=== PATIENT | female | born 1955 | race Caucasian/White ===

== ENCOUNTER 2020-02-05 09:55 | Outpatient (CLI) | payer MEDICARE, SELFPAY ==
--- NOTE | 2020-02-05 11:00 | NEURO_ITS ---
Patient Number: [id number] Impression: # Complains of numbness of anterolateral right thigh. # Right peroneal neuropathy distally with neurogenic changed in EDB. # Asymmetrical right peroneal F-wave. # Needle/EMG exam normal including Quad. # Clinical correlation recommended; Problem could be related to involvement of anterolateral cutaneous of thigh. Nerve Conduction Studies Anti Sensory Summary Table Stim Site NR Peak (ms) P-T Amp (?V) Site1 Site2 Delta-P (ms) Dist (cm) Dickson (m/s) Right Sup Fibular Anti Sensory (Ant Lat Mall) 14 cm 3.9 5.5 14 cm Ant Lat Mall 3.9 16.0 41 Right Sural Anti Sensory (Lat Mall) Calf 3.5 4.0 Calf Lat Mall 3.5 16.0 46 Motor Summary Table Stim Site NR Onset (ms) O-P Amp (mV) Site1 Site2 Delta-0 (ms) Dist (cm) Dickson (m/s) Right Peroneal Motor (Vastus Med) Ankle 6.6 1.0 Popit Ankle 8.2 35.0 43 Popit 14.8 1.3 Right Tibial Motor (Abd Rivas Brev) Ankle 4.9 1.7 Knee Ankle 9.4 38.0 40 Knee 14.3 2.0 F Wave Studies NR F-Lat (ms) L-R F-Lat (ms) Right Peroneal (Mrkrs) (EDB) 55.66 Right Tibial (Mrkrs) (Abd Hallucis) 54.27 EMG Side Muscle Nerve Root Ins Act Fibs Amp Dur Recrt Comment Right AntTibialis Dp Br Fibular L4-5 Nml Nml Nml Nml Nml Right Gastroc Tibial S1-2 Nml Nml Nml Nml Nml Right Fibularis Long Sup Br Fibular L5-S1 Nml Nml Nml Nml Nml Right Flex Dig Long Tibial L5-S2 Nml Nml Nml Nml Nml Right Ext Dig Brev Dp Br Fibular L5, S1 Nml Nml Nml Nml Nml Right QuadratusFem QuadFemoris L4-5, S1 Nml Nml Nml Nml Nml MTDD
== END 2020-02-05 09:56 | disposition home or self-care (01) ==
PROVIDERS: PCP Nurse Practitioner Adult Health; Visit Provider Nurse Practitioner Adult Health
DX: G62.9 Polyneuropathy, unspecified (principal)
CPT/HCPCS: 95886; 95908

== ENCOUNTER 2021-10-15 14:53 | Emergency (ER) | payer MEDICARE, SELFPAY ==
[2021-10-15 14:58] VITALS: BP 134/47; PULSE 77; RESP 12; TEMP 36.4; O2SAT 98
--- NOTE | 2021-10-15 15:25 | ED.SKABFB ---
HPI - Skin/Abscess/Foreign Bdy General Chief complaint: Skin/Abscess/Foreign Body Stated complaint: Boil in groin area. Time Seen by Provider: 10/15/21 15:25 Source: patient, RN notes reviewed and old records reviewed Mode of arrival: ambulatory Limitations: no limitations History of Present Illness HPI narrative: 66 year old female presents to [facility] care with complaints of 3cmX 2cm red inflamed tissue to right groin area distal to labia for a 2 week duration. Patient reports that tissue is extremely sore and painful has center black scabbed area. Patient reports that she has put PRID salve and has soaked in warm Epsom salt water with no drainage noted from abscess area. Patient denies any fevers, chills, or sweats, has taken some Tylenol for her discomfort. MD complaint: abscess/boil Onset (ago): week(s) (2) Location: genitals (right perineal area) Severity: severe Severity scale (1-10): 9 Quality: aching and other (throbbing) Pain Consistency: constant Exacerbating factors: other (sitting and palpation of area) Treatments prior to arrival: other (epsom salt soak and PRID salve) Related Data Home Medications Medication Instructions Recorded Confirmed amlodipine 10 mg tablet 10 mg PO DAILY tablet 06/11/21 10/15/21 aspirin 81 mg tablet,delayed 81 mg PO DAILY 06/11/21 10/15/21 release atorvastatin 10 mg tablet 10 mg PO DAILY tablet 06/11/21 10/15/21 fluoxetine 40 mg capsule 40 mg PO DAILY cap 06/11/21 10/15/21 gabapentin 300 mg capsule 300 mg PO BID cap 06/11/21 10/15/21 levothyroxine 50 mcg tablet 100 mcg PO DAILY tablet 06/11/21 10/15/21 lisinopril 10 1 tablet PO DAILY 06/11/21 10/15/21 mg-hydrochlorothiazide 12.5 mg tablet metformin 500 mg tablet 1,000 mg PO DAILY tablet 06/11/21 10/15/21 semaglutide 0.25 mg SUBCUT WEEKLY 06/11/21 10/15/21 Allergies Allergy/AdvReac Type Severity Reaction Status Date / Time canagliflozin Allergy Unknown Rash Verified 10/15/21 14:58 erythromycin base Allergy Unknown Nausea and Verified 10/15/21 14:58 Vomiting prednisone Allergy Unknown Rash Verified 10/15/21 14:58 Review of Systems Review of Systems: CONSTITUTIONAL: Denies fever, chills, or sweats. EYES: Denies visual changes, redness, or discharge. ENT: Denies rhinorrhea, congestion, sore throat, or otalgia. CARDIOVASCULAR: Denies chest pain, palpitations, or edema. RESPIRATORY: Denies cough or dyspnea. GASTROINTESTINAL: Denies abdominal pain, nausea, vomiting, or diarrhea. GENITOURINARY: Denies dysuria or hematuria. SKIN:positive for painful red abscess to right perineal area below labia MUSCULOSKELETAL: Denies back pain, joint pain, or myalgia. NEUROLOGIC: Denies headache, numbness, or weakness. PSYCHIATRIC: Positive history of anxiety or depression. 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 There is no relevant family history pertinent to the presenting complaint Exam Narrative: GENERAL: Well-appearing, well-nourished, and in acute distress due
== END 2021-10-15 15:55 | disposition home or self-care (01) ==
PROVIDERS: Emergency Provider Registered Nurse; PCP Nurse Practitioner Adult Health
DX: L02.215 Cutaneous abscess of perineum (principal); E11.9 Type 2 diabetes mellitus without complications; Z86.73 Personal history of transient ischemic attack (TIA), and cerebral infarction without residual deficits; F41.9 Anxiety disorder, unspecified; E89.0 Postprocedural hypothyroidism
CPT/HCPCS: 10060; 99213; G0463

== ENCOUNTER 2022-01-09 10:51 | Emergency (ER) | payer MEDICARE, SELFPAY ==
--- NOTE | ~2022-01-09 | XR_ITS ---
EXAMINATION: XR chest 2V DATE: 01/09/2022 11:29 INDICATION: Cough and congestion TECHNIQUE: PA and lateral views of the chest are obtained. COMPARISON: 06/30/2018 FINDINGS: The lungs are free of acute opacities. There is no pleural effusion or pneumothorax. The ca rdiomediastinal silhouette is normal. There is mild thoracic spondylosis. IMPRESSION: 1. No acute cardiopulmonary abnormality. Reviewed, dictated and finalized at location A.
[2022-01-09 10:56] VITALS: BP 106/48; PULSE 73; RESP 16; TEMP 36.1; O2SAT 99
--- NOTE | 2022-01-09 11:22 | ED.GENADULT ---
HPI - General Adult General Chief complaint: Upper Respiratory Infection Stated complaint: COUGH/CONGESTION Source: patient Mode of arrival: ambulatory Limitations: no limitations History of Present Illness HPI narrative: Patient presents for evaluation of respiratory symptoms for the last 9 days. Symptoms include sinus congestion, productive cough of clear/green sputum, clear nasal discharge, fever, scratchy throat and right ear pain. She states her grandchild had similar symptoms. No chills, nausea, vomiting, diarrhea, body aches. She had COVID in August of this year. She had received her COVID vaccination and boosters. She has also received a flu shot and pneumonia vaccine. She does not smoke. She tried taking sudafed, mucinex and theraflu with minimal improvement in her symptoms thereafter. Related Data Home Medications Medication Instructions Recorded Confirmed amlodipine 10 mg tablet 10 mg PO DAILY 06/11/21 01/09/22 aspirin 81 mg tablet,delayed 81 mg PO DAILY 06/11/21 01/09/22 release (Adult Aspirin Regimen) atorvastatin 10 mg tablet 10 mg PO DAILY 06/11/21 01/09/22 fluoxetine 40 mg capsule 40 mg PO DAILY 06/11/21 01/09/22 gabapentin 300 mg capsule 300 mg PO BID 06/11/21 01/09/22 levothyroxine 50 mcg tablet 100 mcg PO DAILY 06/11/21 01/09/22 lisinopril 10 1 tablet PO DAILY 06/11/21 01/09/22 mg-hydrochlorothiazide 12.5 mg tablet metformin 500 mg tablet 1,000 mg PO DAILY 06/11/21 01/09/22 semaglutide 0.25 mg or 0.5 mg (2 0.25 mg subcut WEEKLY 06/11/21 01/09/22 mg/1.5 mL) subcutaneous pen injector (Ozempic) Allergies Allergy/AdvReac Type Severity Reaction Status Date / Time canagliflozin Allergy Unknown Rash Verified 01/09/22 10:55 erythromycin base Allergy Unknown Nausea and Verified 01/09/22 10:55 Vomiting prednisone Allergy Unknown Rash Verified 01/09/22 10:55 Review of Systems Review of Systems: CONSTITUTIONAL: Reports fever and fatigue. Denies chills, or sweats. EYES: Denies visual changes, redness, or discharge. ENT:Reports right ear pain, sinus congestion/drainage, and scratchy throat. CARDIOVASCULAR: Denies chest pain, palpitations, or edema. RESPIRATORY:Reports productive cough of green sputum. Denies dyspnea. GASTROINTESTINAL: Denies abdominal pain, nausea, vomiting, or diarrhea. GENITOURINARY: Denies dysuria or hematuria. SKIN: Denies rash or itching. MUSCULOSKELETAL: Denies back pain, joint pain, or myalgia. NEUROLOGIC: Denies headache, numbness, dizziness, or weakness. PSYCHIATRIC: Denies anxiety or depression. 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 Influenza and COVID were negative. Chest x-ray was negative. Blood pressure was initially soft but she was asymptomatic. She has no tachycardia, or fever to suggest sepsis sepsis. She consumed water while here and her blood pressure
[2022-01-09 11:59] VITALS: BP 105/44; PULSE 68
[2022-01-09 12:50] VITALS: BP 120/60
== END 2022-01-09 12:50 | disposition home or self-care (01) ==
PROVIDERS: Emergency Provider Nurse Practitioner; PCP Nurse Practitioner Adult Health
DX: J06.9 Acute upper respiratory infection, unspecified (principal); Z20.822 Contact with and (suspected) exposure to COVID-19; E11.9 Type 2 diabetes mellitus without complications; I10 Essential (primary) hypertension; Z86.73 Personal history of transient ischemic attack (TIA), and cerebral infarction without residual deficits; E89.0 Postprocedural hypothyroidism; Z79.82 Long term (current) use of aspirin; F41.9 Anxiety disorder, unspecified
CPT/HCPCS: 71046; 87426; 87804; 99213; C9803; G0463

== ENCOUNTER → 2022-10-08 13:39 | Outpatient (CLI) | payer MEDICARE, SELFPAY ==
--- NOTE | ~2022-10-08 | XR_ITS ---
EXAMINATION: XR chest 2V 10/08/2022 13:50 INDICATION: Pleurodynia PROCEDURE: 2 view chest COMPARISON: Comparison to multiple prior studies sequentially, with oldest reviewed study dated 05/09. FINDINGS: The lungs are clear. The cardiomediastinal silhouette is within normal limits. There are no pleural effusions. There is no pneumothorax suspected. IMPRESSION: 1: NO ACUTE CARDIOPULMONARY DISEASE. Reviewed, dictated and finalized at location B. SPRAYER
== END ==
PROVIDERS: PCP Nurse Practitioner Family; Visit Provider Nurse Practitioner Family
DX: R07.81 Pleurodynia (principal)
CPT/HCPCS: 71046

== ENCOUNTER 2023-07-05 14:12 | Outpatient (CLI) | payer MEDICARE, SELFPAY ==
--- NOTE | ~2023-07-05 | US_ITS ---
EXAMINATION: US thyroid DATE: 07/05/2023 15:07 INDICATION: Hypothyroidism, unspecified. TECHNIQUE: Multiple ultrasound images of the thyroid were obtained. COMPARISON: Ultrasound 03/23/2006 FINDINGS: The right thyroid lobe is absent. The left thyroid lobe measures 1.3 x 0.6 x 0.6 cm. There is normal echotexture and echogenicity throughout the thyroid gland. No discrete nodules identified. Normal va scular flow is present. IMPRESSION: 1. Small left thyroid lobe. Right thyroid lobe absent. Reviewed, dictated and finalized at location A. ISION LENS POLISHER
== END 2023-07-05 14:13 | disposition home or self-care (01) ==
LOC: ANHIMG 14:17
PROVIDERS: PCP Nurse Practitioner Family; Visit Provider Nurse Practitioner Family
DX: E89.0 Postprocedural hypothyroidism (principal); R09.A2 Foreign body sensation, throat
CPT/HCPCS: 76536

== ENCOUNTER 2023-09-28 10:17 | Outpatient (CLI) | payer MEDICARE, SELFPAY ==
--- NOTE | ~2023-09-28 | XR_ITS ---
EXAMINATION: XR chest 2V DATE: 09/28/2023 10:37 INDICATION: Chest pain. TECHNIQUE: Frontal and lateral views of the chest were obtained. COMPARISON: Chest 2 views 10/08/2022, CT abdomen and pelvis 05/25/2018 FINDINGS: There is no pneumonia, pleural effusion, or pneumothorax. The heart size is normal. IMPRESSION: 1. No acute cardiopulmonary disease. Reviewed, dictated and finalized at location E. NSED PHYSICAL THERAPIST ASSISTANT
[2023-09-28 11:00] LABS: Basophils Absolute Auto 0.1 K/mm3 (0.0-0.1); Basophils Percent Auto 0.5 % (0.2-1.2); Eosinophils Absolute Auto 0.2 K/mm3 (0-0.3); Eosinophils Percent Auto 2.4 % (0-4.4); Hematocrit 42.7 % (37.0-47.0); Hemoglobin 14.1 g/dL (12.0-15.0); Immature Granulocyte Absolute 0.02 K/mm3 (0.00-0.031); Immature Granulocyte Percent A 0.2 % (0-0.5); Lymphocytes Absolute Auto 3.77 K/mm3 (0.9-3.2); Lymphocytes Percent Auto 40.1 % (18.3-44.2); Mean Corpuscular Hemoglobin 30.9 pg (26-34); Mean Corpuscular Volume 93.6 fl (80-100); Mean Platelet Volume 9.7 fl (7.4-10.4); Monocytes Absolute Auto 0.5 K/mm3 (0.1-0.6); Monocytes Percent Auto 5.5 % (2.6-8.5); Neutrophils Absolute Auto 4.8 K/mm3 (1.3-6.7); Neutrophils Percent Auto 51.3 % (45.5-73.1); Platelet Count Result 243 k/mm3 (150-375); Red Blood Count 4.56 M/mm3 (4.2-5.4); Red Cell Distribution Width 12.2 % (11.5-14.5); White Blood Count 9.4 K/mm3 (4.5-10.0)
[2023-09-28 11:10] LABS: Alanine Aminotransferase 35 U/L (6-35); Albumin Level 4.5 g/dL (3.5-5.1); Alkaline Phosphatase 86 U/L (38-126); Anion Gap 8 mmol/L (8-16); Aspartate Amino Transferase 36 U/L (14-36); Bilirubin,Total 0.6 mg/dL (0.2-1.3); Blood Urea Nitrogen 19 mg/dL (7-17); Calcium 10.1 mg/dL (8.4-10.2); Carbon Dioxide 30 mmol/L (22-30); Chloride 98 mmol/L (98-107); Cholesterol 161 mg/dL (0-200); Estimated Glomerular Filt Rate > 60; Glucose 136 mg/dL (65-110); HDL Direct 63 mg/dL; Sodium 136 mmol/L (137-145); Triglycerides 148 mg/dL (<150)
[2023-09-28 11:11] LABS: Iron 106 ug/dL (37-170)
--- NOTE | 2023-09-28 11:11 | ECG_ITS ---
Measurements Intervals [place] Rate: 71 P: 60 MI: 154 QRS: 42 QRSD: 83 T: 62 QT: 369 QTc: 402 Interpretive Statements SINUS RHYTHM NORMAL ECG NO PREVIOUS ECG AVAILABLE FOR COMPARISON Electronically Signed On 09-28-2023 16:26:17 IP LITIGATION PARALEGAL by Shreyas Mathew M.D.
[2023-09-28 11:20] LABS: Percent Iron Saturation 36 % (20-50)
[2023-09-28 11:21] LABS: LDL Cholesterol Direct 77 mg/dL
[2023-09-28 11:41] LABS: Thyroid Stimulating Hormone 0.641 uIU/mL (0.465-4.680)
[2023-09-28 12:00] LABS: Vitamin B12 > 1000.0 pg/mL (239-931)
== END 2023-09-28 10:18 | disposition home or self-care (01) ==
LOC: ANHIMG 10:23
PROVIDERS: PCP Nurse Practitioner Family; Visit Provider Nurse Practitioner Family
DX: E03.9 Hypothyroidism, unspecified (principal); D64.9 Anemia, unspecified; E78.5 Hyperlipidemia, unspecified; E53.8 Deficiency of other specified B group vitamins; R42 Dizziness and giddiness; I10 Essential (primary) hypertension; R07.9 Chest pain, unspecified
CPT/HCPCS: 36415; 71046; 80048; 80061; 80076; 82607; 82728; 83540; 83550; 84439; 84443; 85025; 93005

== ENCOUNTER 2023-10-13 13:29 | Outpatient (CLI) | payer MEDICARE, SELFPAY ==
--- NOTE | 2023-10-13 13:36 | ECHO_ITS ---
Patient Info Name: Alessandra Miller Age: 68 years : 1955 Gender: Female Ht: 62 in Wt: 165 lbs BSA: 1.84 m2 HR: 74 bpm BP: 137 / 56 mmHg Technical Quality: Fair Exam Date: 10/13/2023 1:58 PM Exam Location: Echo Lab Patient Status: Outpatient Admit Date: 10/13/2023 Staff Ordering Physician: Rosa Isela Jimenez NP Long [employer] Quiller Tender: Ernestina Alfred RDCS Attending Provider: Rosa Isela Jimenez NP Exam Type: CA echo doppler color flow Study Info Indications R07.9 - Chest pain, unspecified Complete two-dimensional, color flow and Doppler transthoracic echocardiogram is performed. Summary 1. Complete two-dimensional, color flow and Doppler transthoracic echocardiogram is performed. 2. Left ventricular chamber dimension is normal. 3. Left ventricular systolic function is normal, estimated at 60-65%. 4. The left ventricular diastolic function is grade I diastolic dysfunction. 5. E/e' 7 is not elevated. 6. Global longitudinal strain is normal at -20.2%. 7. There is mild aortic valve sclerosis. 8. No pulmonary hypertension, estimated pulmonary arterial systolic pressure is 34 mmHg. Left Ventricle E/e' 7 is not elevated. Global longitudinal strain is normal at -20.2%. Left ventricular chamber dimension is normal. Left ventricular systolic function is normal, estimated at 60-65%. The left ventricular diastolic function is grade I diastolic dysfunction. Right Ventricle Right ventricular chamber dimension is normal. Right ventricular systolic function is normal. Left Atria Left atrial chamber dimension is normal. Right Atria Right atrial chamber dimension is normal. Aortic Valve The aortic valve is trileaflet. There is mild aortic valve sclerosis. There is no aortic valve stenosis. There is no aortic valve regurgitation. Pulmonic Valve There is no pulmonic regurgitation. Mitral Valve There is no mitral valve stenosis. There is no mitral valve regurgitation. Tricuspid Valve There is no tricuspid valve regurgitation. No pulmonary hypertension, estimated pulmonary arterial systolic pressure is 34 mmHg. Pericardium/Pleural There is no pericardial effusion. Inferior Vena Cava Normal inferior vena cava with >50% collapse upon inspiration consistent with normal right atrial pressure, 5 mmHg. Aorta The aortic root size at the sinus of Valsalva is normal. Left Ventricular Outflow Tract Name Value Normal LVOT 2D LVOT Diameter 2.0 cm LVOT Doppler LVOT Peak Gradient 7 mmHg LVOT Mean Gradient 4 mmHg LVOT VTI 29 cm LVOT VTI/AV VTI Ratio 0.8 LVOT Stroke Volume 94 ml LVOT CO 18.3 l/min LVOT CI 10.0 l/min/m2 Pulmonic Valve Name Value Normal PV Doppler PV Peak Gradient 4 mmHg Mitral Valve
== END 2023-10-13 13:30 | disposition home or self-care (01) ==
PROVIDERS: PCP Nurse Practitioner Family; Visit Provider Nurse Practitioner Family
DX: R93.1 Abnormal findings on diagnostic imaging of heart and coronary circulation (principal); I10 Essential (primary) hypertension; R07.9 Chest pain, unspecified; I35.8 Other nonrheumatic aortic valve disorders
CPT/HCPCS: 93306

== ENCOUNTER 2023-11-14 07:00 | Outpatient (NON) | payer MEDICARE, SELFPAY | END 2023-11-14 07:01 | disposition home or self-care (01) | LOC: ANHLAB 11-15 08:41 | PROVIDERS: PCP Nurse Practitioner Family; Visit Provider Internal Medicine Gastroenterology | DX: D12.8 Benign neoplasm of rectum (principal) | CPT/HCPCS: 88305 ==

== ENCOUNTER 2023-11-14 07:04 | Day surgery (SDC) | payer MEDICARE, SELFPAY ==
[2023-10-11 10:56] VITALS: BMI 30.7
[2023-10-25 13:55] VITALS: BMI 30.2
--- NOTE | 2023-11-13 20:48 | PM.HPGS ---
History of Present Illness History of Present Illness Consent: Risks, benefits, and alternatives have been discussed and questions answered. Patient agrees to proceed with procedure. Chief complaint: History of Colon Polyps Narrative: Alessandra Miller is a 68 year old female who is referred for colon cancer screening. She has a history of polyps. Review of Systems Review of Systems: All systems reviewed & are unremarkable except as noted in HPI and below PMFSH Past Medical History Medical History Acute sinusitis Adhesive capsulitis of right shoulder Allergies Anemia Anxiety Arthritis B12 deficiency Chest pain Chronic nasal congestion Decreased exercise tolerance Depression Diabetes per pt, February 2021 A1c = 6.2 Diabetes mellitus Dizziness Encounter to establish care GERD (gastroesophageal reflux disease) Hemoglobin A1c less than 7.0% Hx of colonic polyps Hyperlipidemia Hypertension Hypothyroid Insomnia Localized swelling, mass and lump, left lower limb Localized swelling, mass and lump, right lower limb Low back pain with bilateral sciatica Mild aortic valve sclerosis Rib pain Sensation of lump in throat Stroke Thyroid disorder Trigger thumb Surgical History Surgical History H/O microdiscectomy H/O thyroidectomy History of appendectomy History of carpal tunnel surgery Family History Family History Mother Cerebrovascular accident Diabetes mellitus Hypertension Sibling Diabetes mellitus Other Heart disease Social History Social History Smoking status: Never smoker Alcohol intake: never Substance use: never Substance use type: does not use Do You Feel Safe in your Home?: Yes Lack of Transportation: No Lack of Food: Never True Current Housing: I Have Housing Concerned About Future Housing: No Difficulty Paying Gas/Electric Bills: No Difficulty Paying for Meds: No Currently Unemployed: No Education: High School Diploma/GED Difficulty w/ Childcare or Family Care: No Living arrangements: with family Occupation/Education: occupation 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 Gender identity (if verbalized by the patient): Female Sexual Orientation (if Verbalized by the Patient): Straight or Heterosexual Spiritual care concerns: No Meds Home Medications and Allergies Home Medications Medication Instructions Recorded Confirmed Type aspirin 81 mg tablet,delayed 81 mg PO DAILY 06/11/21 11/14/23 History release (Adult Aspirin Regimen) cetirizine 10 mg tablet (Zyrtec) 10 mg PO DAILY PRN Allergy Symptoms 08/04/22 11/14/23 History ferrous sulfate [Iron (ferrous 325 mg PO DAILY 08/04/22 11/14/23 History sulfate)] ondansetron HCl 4 mg tablet 4 mg PO Q8H PRN nausea and 12/13/22 11/14/23 Rx vomiting #30 tabs atorvastatin 10 mg tablet 10 mg PO DAILY #90 tabs 02/02/23 11/14/23 Rx levothyroxine 88 mcg tablet 88 mcg PO DAILY #30 tabs 03/18/23 11/14/23 Rx quetiapine 25 mg tablet (Seroquel) 25 mg PO QHS #30 tabs 03/18/23 11/14/23 Rx semaglutide 2 mg/dose (8 mg/3 mL) 2 mg (0.75 mL) subcut WEEKLY #3 mL 05/23/23 11/14/23 Rx subcutaneous pen injector famotidine 20 mg tablet 20 mg PO DAILY PRN Indigestion 09/28/23 11/14/23 History lisinopril 10 mg tablet 10 mg PO DAILY #30 tabs 09/28/23 11/14/23 Rx omeprazole 20 mg capsule,delayed 20 mg PO DAILY 09/28/23 11/14/23 History release fluoxetine 40 mg capsule 40 mg PO DAILY #90 caps 10/24/23 11/14/23 Rx glimepiride 4 mg tablet 4 mg PO DAILY 10/25/23 11/14/23 History metformin 500 mg tablet,extended 500 mg PO BID 10/25/23 11/14/23 History release 24 hr Allergies Allergy/AdvReac Type Severity Reaction Status Date / Time canagliflozin Allergy Unknown Rash Verified 11/14/23 08:10 eryt
--- NOTE | 2023-11-14 07:06 | WPDANESEPPF ---
Anes - Initial Pre Proc Eval Procedure: Operation Date: 11/14/23 09:30 Proposed Procedures p Colonoscopy - Vignesh Nam MD Date/Time: 11/14/23 07:06 Surgeon: Vignesh Nam MD Pre Op Diagnosis: History of Colon Polyps Patient Data Age: 68 Gender: F Height: 1.57 m Weight: 75 kg Allergies Allergy/AdvReac Type Severity Reaction Status Date / Time canagliflozin Allergy Unknown Rash Verified 11/14/23 08:10 erythromycin base Allergy Unknown Nausea and Verified 11/14/23 08:10 Vomiting prednisone Allergy Unknown Rash Verified 11/14/23 08:10 Home Medications Medication Instructions Recorded Confirmed Type aspirin 81 mg tablet,delayed 81 mg PO DAILY 06/11/21 11/14/23 History release (Adult Aspirin Regimen) cetirizine 10 mg tablet (Zyrtec) 10 mg PO DAILY PRN Allergy Symptoms 08/04/22 11/14/23 History ferrous sulfate [Iron (ferrous 325 mg PO DAILY 08/04/22 11/14/23 History sulfate)] ondansetron HCl 4 mg tablet 4 mg PO Q8H PRN nausea and 12/13/22 11/14/23 Rx vomiting #30 tabs atorvastatin 10 mg tablet 10 mg PO DAILY #90 tabs 02/02/23 11/14/23 Rx levothyroxine 88 mcg tablet 88 mcg PO DAILY #30 tabs 03/18/23 11/14/23 Rx quetiapine 25 mg tablet (Seroquel) 25 mg PO QHS #30 tabs 03/18/23 11/14/23 Rx semaglutide 2 mg/dose (8 mg/3 mL) 2 mg (0.75 mL) subcut WEEKLY #3 mL 05/23/23 11/14/23 Rx subcutaneous pen injector famotidine 20 mg tablet 20 mg PO DAILY PRN Indigestion 09/28/23 11/14/23 History lisinopril 10 mg tablet 10 mg PO DAILY #30 tabs 09/28/23 11/14/23 Rx omeprazole 20 mg capsule,delayed 20 mg PO DAILY 09/28/23 11/14/23 History release fluoxetine 40 mg capsule 40 mg PO DAILY #90 caps 10/24/23 11/14/23 Rx glimepiride 4 mg tablet 4 mg PO DAILY 10/25/23 11/14/23 History metformin 500 mg tablet,extended 500 mg PO BID 10/25/23 11/14/23 History release 24 hr Patient hx anesthesia problems: none Family hx anesthesia problems: none Results Review: All pre-operative results and documents have been reviewed as part of the pre-operative evaluation. [facility] Past Medical History Medical History Acute sinusitis Adhesive capsulitis of right shoulder Allergies Anemia Anxiety Arthritis B12 deficiency Chest pain Chronic nasal congestion Decreased exercise tolerance Depression Diabetes per pt, February 2021 A1c = 6.2 Diabetes mellitus Dizziness Encounter to establish care GERD (gastroesophageal reflux disease) Hemoglobin A1c less than 7.0% Hx of colonic polyps Hyperlipidemia Hypertension Hypothyroid Insomnia Localized swelling, mass and lump, left lower limb Localized swelling, mass and lump, right lower limb Low back pain with bilateral sciatica Mild aortic valve sclerosis Rib pain Sensation of lump in throat Stroke Thyroid disorder Trigger thumb Surgical History Surgical History H/O microdiscectomy H/O thyroidectomy History of appendectomy History of carpal tunnel surgery Family History Family History Mother Cerebrovascular accident Diabetes mellitus Hypertension Sibling Diabetes mellitus Other Heart disease Social History Social History Smoking status: Never smoker Alcohol intake: never Substance use: never Substance use type: does not use Do You Feel Safe in your Home?: Yes Lack of Transportation: No Lack of Food: Never True Current Housing: I Have Housing Concerned About Future Housing: No Difficulty Paying Gas/Electric Bills: No Difficulty Paying for Meds: No Currently Unemployed: No Education: High School Diploma/GED Difficulty w/ Childcare or Family Care: No Living arrangements: with family Occupation/Education: occupation 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
[2023-11-14] MEDS: LACTATED RINGERS 1,000 ML 150 ML IV CONT (08:20)
[2023-11-14 08:23] LABS: Glucose Point of Care 107 mg/dl (65-105)
[2023-11-14 09:47] VITALS: BP 118/54; PULSE 65; RESP 16; O2SAT 99
[2023-11-14 09:57] VITALS: BP 127/52; PULSE 68; RESP 16; O2SAT 100
[2023-11-14 10:07] VITALS: BP 136/57; PULSE 65; RESP 16; O2SAT 99
--- NOTE | 2023-11-14 10:10 | WPDANESPN ---
Anes - Prog Note Post-Op Date/Time: 11/14/23 10:10 Cardiovascular status: normal Respiratory status: normal Airway patency: baseline Mental status: baseline Post-Op hydration status: normal Vital Signs: Last Vital Signs Pulse 68 11/14/23 09:57 Resp 16 11/14/23 09:57 BP 127/52 L 11/14/23 09:57 Pulse Ox 100 11/14/23 09:57 O2 Del Method Room Air 11/14/23 09:57 Pain Score (VAS): 0 I/O: Intake & Output 11/13/23 11/14/23 11/14/23 23:59 07:59 15:59 Intake Total 300 Balance 300 11/14/23 08:18 POC Capillary Glucose 107 H Post-procedural complaints: none Patient Feedback: Patient satisfied with anesthetic care. Other Findings: Patient vital signs back to baseline. Patient denies nausea and vomiting. Patient's pain under control. Patient OK for discharge.
== END 2023-11-14 10:25 | disposition home or self-care (01) ==
PROVIDERS: PCP Nurse Practitioner Family; Visit Provider Internal Medicine Gastroenterology
PROC: 0DJD8ZZ Inspection of Lower Intestinal Tract, Via Natural or Artificial Opening Endoscopic (ICD-10-PCS; CPT 45378; principal; 2023-11-14 09:30)
DX: Z12.11 Encounter for screening for malignant neoplasm of colon (principal); K62.1 Rectal polyp; K57.30 Diverticulosis of large intestine without perforation or abscess without bleeding; K64.8 Other hemorrhoids
CPT/HCPCS: 45380

== ENCOUNTER 2024-02-02 18:36 | Emergency (ER) | payer MEDICARE, SELFPAY ==
--- NOTE | ~2024-02-02 | XR_ITS ---
EXAMINATION: XR chest 2V Exam Date/Time: 02/02/2024 18:50 CDT HISTORY: chest pain Comparison: 09/28/2023. RESULT: Lines, tubes, and devices: None. Lungs and pleura: Clear. Cardiomediastinal silhouette: Stable. Other: No acute osseous or upper abdominal finding. IMPRESSION: No acute cardiopulmonary process. Reviewed, dictated and finalized at location K.
--- NOTE | ~2024-02-02 | CT_ITS ---
EXAMINATION: CT abdomen pelvis w con DATE: 02/02/2024 19:50 INDICATION: pancreatitis TECHNIQUE: Computed tomography (CT) of the abdomen and pelvis was performed with 100 mL Omnipaque-350 intravenous contrast. Automated exposure control and iterative reconstruction technique were employe d. The dose-length product was 784.41 mGy-cm. COMPARISON: 05/25/2018. FINDINGS: Lower thorax: Stable sub-6 mm pulmonary nodules, likely granulomas. Liver: Normal. Biliary/Gallbladder: Gallbladder is normal. No bile duct dilation. Pancreas: No mass or duct dilation. Spleen: Normal. Adrenals:No mass. Kidneys: No suspicious mass, obstructing stone, or hydronephrosis. GI tract: Mild distal esophageal and gastric wall edema. No small or large bowel dilation. The append ix is not confidently visualized. Diverticulosis without diverticulitis. Mesentery/Peritoneum: No ascites, mass, or free air. Retroperitoneum: No mass. Atherosclerotic abdominal aortic and/or arterial calcifications. Pelvis: Absent uterus. Ovaries not visualized. Normal urinary bladder.. Soft Tissues: Soft tissues and body wall unremarkable. Bones: No acute osseous finding. Innumerable scattered punctate sclerotic lesions within the bones, presumably secondary to osteopoikilosis. IMPRESSION: Mild esophagitis/gastritis. No CT evidence of acute pancreatitis. No other acute abdominopelvic process detected. Reviewed, dictated and finalized at location K.
--- NOTE | 2024-02-02 18:40 | ECG_ITS ---
Test Date: 2024-02-02 18:43:27 Measurements Intervals [place] Rate: 77 P: 50 SD: 134 QRS: 37 QRSD: 88 T: 67 QT: 357 QTc: 405 Interpretive Statements SINUS RHYTHM NORMAL ELECTROCARDIOGRAM No previous ECG available for comparison Electronically Signed On 02-03-2024 07:23:08 CDT by Gian Ibarra M.D.
[2024-02-02 18:47] VITALS: BP 162/82; PULSE 80; RESP 18; TEMP 36.8; O2SAT 100
[2024-02-02 18:49] VITALS: PULSE 79
[2024-02-02 18:54] LABS: Basophils Percent Auto 0.3 % (0.2-1.2); Eosinophils Absolute Auto 0.2 K/mm3 (0-0.3); Eosinophils Percent Auto 2.1 % (0-4.4); Hemoglobin 14.7 g/dL (12.0-15.0); Immature Granulocyte Absolute 0.02 K/mm3 (0.00-0.031); Immature Granulocyte Percent A 0.2 % (0-0.5); Lymphocytes Absolute Auto 4.26 K/mm3 (0.9-3.2); Lymphocytes Percent Auto 42.6 % (18.3-44.2); Mean Corpuscular HGB Conc 33.4 g/dl (32-36); Mean Corpuscular Hemoglobin 31.4 pg (26-34); Mean Platelet Volume 9.8 fl (7.4-10.4); Monocytes Absolute Auto 0.6 K/mm3 (0.1-0.6); Monocytes Percent Auto 6.2 % (2.6-8.5); Neutrophils Absolute Auto 4.9 K/mm3 (1.3-6.7); Neutrophils Percent Auto 48.6 % (45.5-73.1); Platelet Count Result 233 k/mm3 (150-375); Red Blood Count 4.68 M/mm3 (4.2-5.4); Red Cell Distribution Width 12.7 % (11.5-14.5)
[2024-02-02] MEDS: ASPIRIN 81 MG CHEWABLE TABLET 324 MG PO (18:58)
[2024-02-02 19:07] LABS: Alanine Aminotransferase 31 U/L (6-35); Albumin Level 4.9 g/dL (3.5-5.1); Alkaline Phosphatase 103 U/L (38-126); Anion Gap 9 mmol/L (4-12); Aspartate Amino Transferase 35 U/L (14-36); Bilirubin,Total 0.4 mg/dL (0.2-1.3); Blood Urea Nitrogen 15 mg/dL (7-17); Calcium 10.2 mg/dL (8.4-10.2); Carbon Dioxide 28 mmol/L (22-30); Chloride 104 mmol/L (98-107); Estimated CRCL calculation 53 ml/min; Estimated Glomerular Filt Rate > 60; Glucose 103 mg/dL (65-110); Lipase 1522 U/L (23-300); Potassium 3.8 mmol/L (3.4-5.0); Sodium 141 mmol/L (137-145)
[2024-02-02 19:08] LABS: INR 0.9; Prothrombin Time 12.7 Seconds (11.1-14.7)
[2024-02-02 19:17] LABS: Troponin I < 0.012 ng/mL (0.000-0.034)
[2024-02-02 19:22] VITALS: BP 139/48; PULSE 72; PULSE 74; RESP 13; O2SAT 100
--- NOTE | 2024-02-02 19:35 | ED.CHESTPAIN ---
HPI - Chest Pain General Chief Complaint: Chest Pain Stated Complaint: chest pain simce yesterday Time Seen by Provider: 02/02/24 19:25 History of Present Illness HPI narrative: Patient is a 69-year-old female who presents to the emergency department this evening complaining of substernal chest pain. Patient admits that the pain started yesterday and initially patient thought that was related to her acid reflux, however, the pain persisted today and patient finally decided to come to the emergency department for further evaluation. Patient denies any additional symptoms including shortness of breath, nausea or vomiting, admits to some abdominal pain, denies any fevers or chills at home. Patient denies any history of cardiovascular disease. Related Data Home Medications Medication Instructions Recorded Confirmed aspirin 81 mg tablet,delayed 81 mg PO DAILY 06/11/21 12/27/23 release (Adult Aspirin Regimen) cetirizine 10 mg tablet (Zyrtec) 10 mg PO DAILY PRN Allergy Symptoms 08/04/22 12/27/23 ferrous sulfate [Iron (ferrous 325 mg PO DAILY 08/04/22 12/27/23 sulfate)] famotidine 20 mg tablet 20 mg PO DAILY PRN Indigestion 09/28/23 12/27/23 omeprazole 20 mg capsule,delayed 20 mg PO DAILY 09/28/23 12/27/23 release Allergies Allergy/AdvReac Type Severity Reaction Status Date / Time canagliflozin Allergy Unknown Rash Verified 02/02/24 19:24 erythromycin base Allergy Unknown Nausea and Verified 02/02/24 19:24 Vomiting prednisone Allergy Unknown Rash Verified 02/02/24 19:24 Review of Systems Review of Systems: All systems are reviewed and are negative unless stated otherwise in the HPI. [facility] Past Medical History Medical History Acute sinusitis Adhesive capsulitis of right shoulder Allergies Anemia Anxiety Arthritis B12 deficiency Chest pain Chronic nasal congestion Decreased exercise tolerance Depression Diabetes per pt, February 2021 A1c = 6.2 Diabetes mellitus Dizziness Encounter to establish care GERD (gastroesophageal reflux disease) Hemoglobin A1c less than 7.0% Hx of colonic polyps Hyperlipidemia Hypertension Hypothyroid Insomnia Localized swelling, mass and lump, left lower limb Localized swelling, mass and lump, right lower limb Low back pain with bilateral sciatica Mild aortic valve sclerosis Rib pain Sensation of lump in throat Stroke Thyroid disorder Trigger thumb Surgical History Surgical History H/O microdiscectomy H/O thyroidectomy History of appendectomy History of carpal tunnel surgery Family History Family History Mother Cerebrovascular accident Diabetes mellitus Hypertension Sibling Diabetes mellitus Other Heart disease Social History Social History Smoking status: Never smoker Alcohol intake: never Substance use: never Substance use type: does not use Do You Feel Safe in your Home?: Yes Lack of Transportation: No Lack of Food: Never True Current Housing: I Have Housing Concerned About Future Housing: No Difficulty Paying Gas/Electric Bills: No Difficulty Paying for Meds: No Currently Unemployed: No Education: High School Diploma/GED Difficulty w/ Childcare or Family Care: No Living arrangements: with family Occupation/Education: occupation 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 HEENT: PERRL, no rhinorrhea, no post nasal drip, oropharynx clear. Cardiovascular: Regular rate and rhythm, no murmurs, rubs or gallops, no peripheral edema. Respiratory: Clear t
[2024-02-02] MEDS: PANTOPRAZOLE SODIUM IV 40 MG VIAL IV PUSH (20:07)
== END 2024-02-02 20:33 | disposition home or self-care (01) ==
PROVIDERS: Emergency Medicine; Emergency Provider Emergency Medicine; PCP Nurse Practitioner Family
DX: K20.90 Esophagitis, unspecified without bleeding (principal); K21.9 Gastro-esophageal reflux disease without esophagitis; E11.9 Type 2 diabetes mellitus without complications; I10 Essential (primary) hypertension; E03.9 Hypothyroidism, unspecified; E78.5 Hyperlipidemia, unspecified
CPT/HCPCS: 36415; 71046; 74177; 80053; 83690; 84484; 85025; 85610; 85730; 93005; 96374; 99284; A9270; C9113; Q9967

== ENCOUNTER 2024-06-06 08:43 | Outpatient (CLI) | payer MEDICARE, SELFPAY ==
--- NOTE | ~2024-06-06 | NM_ITS ---
EXAMINATION: NM mathew stress w perfusion DATE: 06/06/2024 11:20 INDICATION: Chest pain, unspecified. TECHNIQUE: Rest images were obtained following intravenous administration of 9.2 mCi Tc99m tetrofosmi n (Myoview). The patient was infused intravenously with Lexiscan (regadenoson). Then, 30 mCi Tc99m te trofosmin (Myoview) was administered intravenously, and stress images were obtained. Data was reconst ructed into short axis and horizontal and vertical long axis SPECT images. Gated SPECT images were al so obtained. COMPARISON: CT abdomen and pelvis 02/02/2024 FINDINGS: There is no definite reversible or fixed perfusion abnormality to suggest ischemia or infar ction. There is no segmental wall motion abnormality. Left ventricular ejection fraction measures > 70%. IMPRESSION: 1. No definite ischemia or infarct. 2. Normal left ventricular ejection fraction measuring >70%. Reviewed, dictated and finalized at location B.
--- NOTE | 2024-06-06 08:56 | EST_ITS ---
Patient Info Name: Alessandra Miller Age: 69 years : 1955 Gender: Female Ht: 62 in Wt: 164 lbs BSA: 1.83 m2 Exam Date: 06/06/2024 9:32 AM Exam Location: [facility] Patient Status: Outpatient Admit Date: 06/06/2024 Staff Ordering Physician: Ramiro Anand DO Attending Provider: Ramiro Anand DO Exercise Technologist: Ashlee Robbins RDCS Exercise Physician: Ramiro Anand DO Exam Type: CA stress mathew w NM Study Info A regadenoson stress test was performed. Summary 1. 1. Negative lexiscan stress test for ischemic ST changes by ECG criteria. 2. 2. Baseline hypertension. 3. 3. Nuclear scan to follow and will be reported separately. Please correlate with it. 4. 4. Patient informed of the above results. Protocol: Lexiscan Stress ECG Details Stage: REST Duration (min): 5 min : 27 sec HR (bpm): 64 SBP (mmHg): 192 DBP (mmHg): 75 Stage: REST Duration (min): 6 min : 48 sec HR (bpm): 64 SBP (mmHg): 192 DBP (mmHg): 75 Stage: STAGE 1 Duration (min): 0 min : 59 sec HR (bpm): 108 SBP (mmHg): 192 DBP (mmHg): 75 Stage: RECOVERY Duration (min): 1 min : 0 sec HR (bpm): 117 SBP (mmHg): 171 DBP (mmHg): 65 Stage: RECOVERY Duration (min): 2 min : 0 sec HR (bpm): 100 SBP (mmHg): 171 DBP (mmHg): 65 Stage: RECOVERY Duration (min): 3 min : 0 sec HR (bpm): 84 SBP (mmHg): 161 DBP (mmHg): 58 Stage: RECOVERY Duration (min): 3 min : 5 sec HR (bpm): 86 SBP (mmHg): 161 DBP (mmHg): 58 Rest HR: 64 bpm Peak HR: 119 bpm Rest Sys BP: 192 mmHg Peak Sys BP: 171 mmHg Max Pred HR: 149 bpm % Max Pred HR: 80 % Target HR: 127 bpm Max RPP: 20,349 bpm*mmHg Termination Reason: Completed protocol Cardiac Symptoms: Shortness of breath Total Time: 1 min : 0 sec Rest Field BP: 75 mmHg Peak Field BP: 65 mmHg Total Dose: 0.4 mg Resting ECG Sinus rhythm. Stress ECG No ST changes. Arrhythmias None. Report Signatures
== END 2024-06-06 08:44 | disposition home or self-care (01) ==
PROVIDERS: PCP Nurse Practitioner Family; Visit Provider Internal Medicine Cardiovascular Disease
DX: R07.9 Chest pain, unspecified (principal)
CPT/HCPCS: 78452; 93017; A9502; J2785

== ENCOUNTER → 2024-06-28 10:02 | Outpatient (CLI) | payer MEDICARE, SELFPAY ==
--- NOTE | ~2024-06-28 | XR_ITS ---
EXAMINATION: XR hand RT min 3V DATE: 06/28/2024 10:28 INDICATION: Pain in right hand. TECHNIQUE: 3 views of right hand were obtained. COMPARISON: None. FINDINGS: Alignment is normal. No fracture. There is mild osteoarthritis of triscaphe joint, first ca rpometacarpal joint, first metacarpophalangeal joint, and some of the interphalangeal joints. IMPRESSION: 1. Polyarticular osteoarthritis. Reviewed, dictated and finalized at location A. ICAL GARMENT INSPECTOR
--- NOTE | ~2024-06-28 | XR_ITS ---
EXAMINATION: XR knee RT min 4V DATE: 06/28/2024 10:28 INDICATION: Right knee pain. TECHNIQUE: 4 views of right knee including standing views were obtained. COMPARISON: None. FINDINGS: Alignment is normal. No fracture. There is moderate osteoarthritis of lateral compartment a nd mild osteoarthritis of medial and patellofemoral wires. No knee joint effusion. IMPRESSION: 1. Moderate right knee osteoarthritis. Reviewed, dictated and finalized at location A. DING SPECIALIST
== END ==
LOC: EXPTRAD 10:03
PROVIDERS: PCP Nurse Practitioner Family; Visit Provider Nurse Practitioner Family
DX: M19.041 Primary osteoarthritis, right hand (principal); M17.11 Unilateral primary osteoarthritis, right knee
CPT/HCPCS: 73130; 73564

== ENCOUNTER 2024-07-18 07:00 | Outpatient (NON) | payer MEDICARE, SELFPAY | END 2024-07-18 07:01 | disposition home or self-care (01) | LOC: ANHLAB 07-19 09:24 | PROVIDERS: PCP Nurse Practitioner Family; Visit Provider Internal Medicine Gastroenterology | DX: K29.80 Duodenitis without bleeding (principal); K21.9 Gastro-esophageal reflux disease without esophagitis; R19.7 Diarrhea, unspecified | CPT/HCPCS: 88305 ==

== ENCOUNTER 2024-07-18 09:16 | Day surgery (SDC) | payer MEDICARE, SELFPAY ==
[2024-04-04 09:15] VITALS: BMI 29.9
[2024-04-05 10:53] VITALS: BMI 29.8
[2024-07-18 10:10] VITALS: BP 145/63; PULSE 68; RESP 14; TEMP 36.6; O2SAT 100
[2024-07-18] MEDS: LACTATED RINGERS 1,000 ML 150 ML IV CONT (10:25)
[2024-07-18 10:29] LABS: Glucose Point of Care 104 mg/dl (65-105)
--- NOTE | 2024-07-18 10:55 | P.PNAN_ITS ---
Anes - Initial Pre Proc Eval Procedure: Operation Date: 07/18/24 11:30 Proposed Procedures p Esophagogastroduodenoscopy - Toby Mckeon MD Date/Time: 07/18/24 10:55 Surgeon: Toby Mckeon MD Pre Op Diagnosis: Gerd w/o Esophagitits, Diarrhea Patient Data Age: 69 Gender: F Height: 1.57 m Weight: 74 kg Last Vital Signs Temp 36.6 C 07/18/24 10:10 Pulse 68 07/18/24 10:10 Resp 14 07/18/24 10:10 BP 145/63 H 07/18/24 10:10 Pulse Ox 100 07/18/24 10:10 O2 Del Method Room Air 07/18/24 10:10 Allergies Allergy/AdvReac Type Severity Reaction Status Date / Time canagliflozin Allergy Unknown Rash Verified 07/18/24 10:02 prednisone Allergy Unknown Rash Verified 07/18/24 10:02 erythromycin base AdvReac Unknown Nausea and Verified 07/18/24 10:02 Vomiting Home Medications ?Medication ?Instructions ?Recorded ?Confirmed ?Type aspirin 81 mg tablet,delayed 81 mg PO DAILY 06/11/21 07/18/24 History release (Adult Aspirin Regimen) cetirizine 10 mg tablet (Zyrtec) 10 mg PO DAILY PRN Allergy Symptoms 08/04/22 07/18/24 History fluoxetine 40 mg capsule 40 mg PO DAILY #90 caps 10/24/23 07/18/24 Rx atorvastatin 10 mg tablet 10 mg PO DAILY #90 tabs 12/27/23 07/18/24 Rx glimepiride 1 mg tablet 1 mg PO QAM #90 tabs 12/27/23 07/18/24 Rx levothyroxine 88 mcg tablet 88 mcg PO DAILY #30 tabs 02/29/24 07/18/24 Rx ondansetron HCl 4 mg tablet 4 mg PO Q8H PRN nausea and 04/10/24 06/28/24 Rx vomiting #30 tabs multivitamin with minerals-folic 1 tablet PO DAILY 05/08/24 07/18/24 History acid 0.4 mg tablet tizanidine 4 mg tablet 2 - 4 mg (0.5 - 1 x 4 mg) PO TID 05/28/24 06/28/24 Rx PRN muscle spasticity #90 tabs metformin 500 mg tablet,extended See Rx Instructions .Route 05/29/24 07/18/24 Rx release 24 hr .COMPLEX #360 tabs pantoprazole 40 mg tablet,delayed 40 mg PO QAM #30 tabs 06/07/24 07/18/24 Rx release diphenoxylate-atropine 2.5 1 tablet PO TID PRN diarrhea #90 06/08/24 07/18/24 Rx mg-0.025 mg tablet (Lomotil) tabs rifaximin 550 mg tablet (Xifaxan) 550 mg Tablet#20 Samples 06/12/24 06/28/24 Sample dicyclomine 10 mg capsule 10 mg PO TID PRN abdominal pain 3 06/28/24 07/18/24 Rx months #270 caps lisinopril 20 mg tablet 20 mg PO DAILY #90 tabs 06/28/24 07/18/24 Rx quetiapine 50 mg tablet 50 mg PO QHS #90 tabs 06/28/24 07/18/24 Rx Laboratory Tests 07/18/24 10:22 POC Capillary Glucose 104 mg/dl (65-105) Patient hx anesthesia problems: none Family hx anesthesia problems: none Results Review: All pre-operative results and documents have been reviewed as part of the pre- operative evaluation. [facility] Past Medical History Medical History Trigger finger, right middle finger Right hand pain Right knee pain Helicobacter pylori gastritis Elevated lipase Borborygmi Mild aortic valve sclerosis Hx of colonic polyps GERD (gastroesophageal reflux disease) Decreased exercise tolerance Dizziness Chest pain Sensation of lump in throat Localized swelling, mass and lump, right lower limb Localized swelling, mass and lump, left lower limb B12 deficiency Anemia Acute sinusitis Insomnia Rib pain Low back pain with bilateral sciatica Chronic nasal congestion Diabetes mellitus Depression Encounter to establish care Hypothyroid Hyperlipidemia Thyroid disorder Arthritis Adhesive capsulitis of right shoulder Hypertension Stroke Hemoglobin A1c less than 7.0% Diabetes per pt, February 2021 A1c = 6.2 Anxiety Allergies Trigger thumb Surgical History Surgical History History of carpal tunnel surgery H/O thyroidectomy History of appendectomy H/O microdiscectomy Family History Family History Mother Cerebrovascular accident Diabetes mellitus Hypertension Sibling Diabetes mellitus Other Heart disease Social History Social History Smoking status: Never smoker Alcohol intake: never Substance use: never Substance use type: does not use Do You Feel Safe in your Home?: Yes Lack of Transportation: No Lack of Food: Never True Current Housing: I Have Housing Concerned About Future Housing: No Difficulty Paying Gas/Electric Bills: No Difficulty Paying for Meds: No Currently Unemployed: No Education: High School Diploma/GED Difficulty w/ Childcare or Family Care: No Living arrangements: with family Occupation/Education: occupation 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 Gender identity (if verbalized by the patient): Female Sexual Orientation (if Verbalized by the Patient): Straight or Heterosexual Spiritual care concerns: No Anes - Eval Final PreProcedure Day of Procedure 07/18/24 10:55 Patient weight: overweight Heart: regular rate and rhythm Lungs: clear to auscultation Airway: Mallampati scale class II Neurological: alert and oriented Last oral intake: >/= 8 hours ASA classification: III Emergent: no Anesthetic plan: proceed Anesthesia type and monitoring: general GIVS and standard monitoring Results Review: All pre-operative results and documents have been reviewed as part of the pre- operative evaluation. Informed Consent: The patient's anesthetic plan and its attendant risks and benefits were discussed with the patient/family/POA. Questions were solicited and answers provided to the satisfaction of the patient/family/POA.
--- NOTE | 2024-07-18 11:36 | P.HP_ITS ---
History of Present Illness History of Present Illness Consent: Risks, benefits, and alternatives have been discussed and questions answered. Patient agrees to proceed with procedure. Chief complaint: Gerd w/o Esophagitits, Diarrhea Narrative: Alessandra Miller is a 69 year old female referred for EGD. Patient has a recent history of diarrhea and epigastric pain. Patient found to have H pylori by stool testing. She was placed on triple therapy. She states the diarrhea has now resolved. Epigastric pain has improved. She does have significant regurgitation as substernal discomfort. Currently treated with pantoprazole 40mg p.o. daily. She states she no longer has heartburn. She states diarrhea has resolved. She feels much improved. EGD requested to ensure resolution of H pylori infection and to exclude additional pathology such as ulcers. Family h istory is noncontributory. Colonoscopy performed within the last year was unremarkable. Review of Systems Review of Systems: All systems reviewed & are unremarkable except as noted in HPI and below PMFSH Past Medical History Medical History Trigger finger, right middle finger Right hand pain Right knee pain Helicobacter pylori gastritis Elevated lipase Borborygmi Mild aortic valve sclerosis Hx of colonic polyps GERD (gastroesophageal reflux disease) Decreased exercise tolerance Dizziness Chest pain Sensation of lump in throat Localized swelling, mass and lump, right lower limb Localized swelling, mass and lump, left lower limb B12 deficiency Anemia Acute sinusitis Insomnia Rib pain Low back pain with bilateral sciatica Chronic nasal congestion Diabetes mellitus Depression Encounter to establish care Hypothyroid Hyperlipidemia Thyroid disorder Arthritis Adhesive capsulitis of right shoulder Hypertension Stroke Hemoglobin A1c less than 7.0% Diabetes per pt, February 2021 A1c = 6.2 Anxiety Allergies Trigger thumb Surgical History Surgical History History of carpal tunnel surgery H/O thyroidectomy History of appendectomy H/O microdiscectomy Family History Family History Mother Cerebrovascular accident Diabetes mellitus Hypertension Sibling Diabetes mellitus Other Heart disease Social History Social History Smoking status: Never smoker Alcohol intake: never Substance use: never Substance use type: does not use Do You Feel Safe in your Home?: Yes Lack of Transportation: No Lack of Food: Never True Current Housing: I Have Housing Concerned About Future Housing: No Difficulty Paying Gas/Electric Bills: No Difficulty Paying for Meds: No Currently Unemployed: No Education: High School Diploma/GED Difficulty w/ Childcare or Family Care: No Living arrangements: with family 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/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: occupation 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 Gender identity (if verbalized by the patient): Female Sexual Orientation (if Verbalized by the Patient): Straight or Heterosexual Spiritual care concerns: No Meds Home Medications and Allergies Home Medications ?Medication ?Instructions ?Recorded ?Confirmed ?Type aspirin 81 mg tablet,delayed 81 mg PO DAILY 06/11/21 07/18/24 History release (Adult Aspirin Regimen) cetirizine 10 mg tablet (Zyrtec) 10 mg PO DAILY PRN Allergy Symptoms 08/04/22 07/18/24 History fluoxetine 40 mg capsule 40 mg PO DAILY #90 caps 10/24/23 07/18/24 Rx atorvastatin 10 mg tablet 10 mg PO DAILY #90 tabs 12/27/23 07/18/24 Rx glimepiride 1 mg tablet 1 mg PO QAM #90 tabs 12/27/23 07/18/24 Rx levothyroxine 88 mcg tablet 88 mcg PO DAILY #30 tabs 02/29/24 07/18/24 Rx ondansetron HCl 4 mg tablet 4 mg PO Q8H PRN nausea and 04/10/24 06/28/24 Rx vomiting #30 tabs multivitamin with minerals-folic 1 tablet PO DAILY 05/08/24 07/18/24 History acid 0.4 mg tablet tizanidine 4 mg tablet 2 - 4 mg (0.5 - 1 x 4 mg) PO TID 05/28/24 06/28/24 Rx PRN muscle spasticity #90 tabs metformin 500 mg tablet,extended See Rx Instructions .Route 05/29/24 07/18/24 Rx release 24 hr .COMPLEX #360 tabs pantoprazole 40 mg tablet,delayed 40 mg PO QAM #30 tabs 06/07/24 07/18/24 Rx release diphenoxylate-atropine 2.5 1 tablet PO TID PRN diarrhea #90 06/08/24 07/18/24 Rx mg-0.025 mg tablet (Lomotil) tabs rifaximin 550 mg tablet (Xifaxan) 550 mg Tablet#20 Samples 06/12/24 06/28/24 Sample dicyclomine 10 mg capsule 10 mg PO TID PRN abdominal pain 3 06/28/24 07/18/24 Rx months #270 caps lisinopril 20 mg tablet 20 mg PO DAILY #90 tabs 06/28/24 07/18/24 Rx quetiapine 50 mg tablet 50 mg PO QHS #90 tabs 06/28/24 07/18/24 Rx Allergies Allergy/AdvReac Type Severity Reaction Status Date / Time canagliflozin Allergy Unknown Rash Verified 07/18/24 10:02 prednisone Allergy Unknown Rash Verified 07/18/24 10:02 erythromycin base AdvReac Unknown Nausea and Verified 07/18/24 10:02 Vomiting Vital Signs Vital Signs - 24 hr 07/18/24 10:10 Temperature 97.8 F Pulse Rate 68 Respiratory Rate 14 Blood Pressure 145/63 H Pulse Oximetry 100 Oxygen Delivery Room Air Exam Narrative: Physical exam reveals patient to be alert. Vital signs stable. HEENT exam is unremarkable. Patient is anicteric. Lungs are clear to auscultation and to percussion. Heart is without murmur or extra sounds. Abdomen bowel sounds are present soft nontender with no organomegaly. Digital external rectal exam normal. Assessment and Plan Assessment and plan (1) Helicobacter pylori gastritis: Code(s): K29.70 - Gastritis, unspecified, without bleeding; B96.81 - Helicobacter pylori [H. pylori] as the cause of diseases classified elsewhere Status: Acute Assessment and Plan: Patient with history of H pylori infection documented by stool testing. At that time also had diarrhea and epigastric discomfort that is improved on taking pantoprazole 40mg p.o. daily. EGD requested today to exclude additional pathology and to exclude ongoing currently with resolve symptoms is. (2) GERD (gastroesophageal reflux disease): Code(s): K21.9 - Gastro-esophageal reflux disease without esophagitis Status: Acute Assessment and Plan: Patient with history of substernal regurgitation and reflux. Currently with symptoms controlled on pantoprazole 40mg p.o. daily. EGD requested.
[2024-07-18 11:59] VITALS: BP 154/80; PULSE 79; RESP 14; O2SAT 97
[2024-07-18 12:09] VITALS: BP 142/59; PULSE 65; RESP 16; O2SAT 99
[2024-07-18 12:19] VITALS: BP 126/57; PULSE 62; RESP 16; O2SAT 99
--- NOTE | 2024-07-18 12:34 | WPDANESPN ---
Anes - Prog Note Post-Op Date/Time: 07/18/24 12:34 Cardiovascular status: normal Respiratory status: normal Airway patency: baseline Mental status: baseline Post-Op hydration status: normal Vital Signs: Last Vital Signs Temp 36.6 C 07/18/24 10:10 Pulse 65 07/18/24 12:09 Resp 16 07/18/24 12:09 BP 142/59 H 07/18/24 12:09 Pulse Ox 99 07/18/24 12:09 O2 Del Method Room Air 07/18/24 12:09 Pain Score (VAS): 0/10 I/O: Intake & Output 07/17/24 07/18/24 07/18/24 23:59 07:59 15:59 Intake Total 800 Balance 800 07/18/24 10:22 POC Capillary Glucose 104 Patient Feedback: Patient satisfied with anesthetic care.
== END 2024-07-18 12:35 | disposition home or self-care (01) ==
PROVIDERS: PCP Nurse Practitioner Family; Visit Provider Internal Medicine Gastroenterology
PROC: 0DJ08ZZ Inspection of Upper Intestinal Tract, Via Natural or Artificial Opening Endoscopic (ICD-10-PCS; CPT 43235; principal; 2024-07-18 11:30)
DX: K21.9 Gastro-esophageal reflux disease without esophagitis (principal); R19.7 Diarrhea, unspecified
CPT/HCPCS: 43239